=== PATIENT | female | born 1990 | race Two or more races ===

== ENCOUNTER 2019-11-04 20:38 | Inpatient (IN) | payer BC ==
[~2019-11-04] VITALS: Ht 152.4 cm; Wt 89.5 kg
[2019-11-04] MEDS ORDERED: SODIUM CHLORIDE 0.45% 1,000 ML IV PRN (20:39)
[2019-11-04] MEDS ORDERED: MAGNESIUM SULF. PMX 20GM/500ML 500 ML IV SCH (20:39)
[2019-11-04] MEDS ORDERED: MAGNESIUM SULFATE PMX 2GM/50ML 50 ML IVPB ONE (21:00)
[2019-11-04] MEDS ORDERED: CALCIUM GLUCONATE 4.6 MEQ/10 ML IV PRN (21:00)
[2019-11-04] MEDS ORDERED: PLEASE ENTER HEIGHT AND WEIGHT MC SCH (21:30)
[2019-11-04 21:53] LABS: BASOPHILS # (AUTO) 0.02 x10^3/uL (0-0.1); BASOPHILS % (AUTO) 0 % (0-1); EOSINOPHILS # (AUTO) 0.17 x10^3/uL (0-0.4); EOSINOPHILS % (AUTO) 2 % (1-7); LYMPHOCYTES # (AUTO) 1.49 x10^3/uL (1-3.4); LYMPHOCYTES % (AUTO) 14 % (22-44); MD NO; MEAN CORPUSCULAR HEMOGLOBIN 29.3 pg (27.0-34.8); MEAN CORPUSCULAR VOLUME 88.8 fL (80-100); MEAN PLATELET VOLUME 8.5 fL (7.4-10.4); MONOCYTES % (AUTO) 1 % (2-9); NEUTROPHILS # (AUTO) 8.57 x10^3/uL (1.8-6.8); NEUTROPHILS % (AUTO) 83 % (42-75); PLATELET COUNT 262 x10^3/uL (130-400); RED BLOOD COUNT 4.47 x10^6/uL (3.82-5.3); RED CELL DISTRIBUTION WIDTH 14.1 % (9.6-15.2)
[2019-11-04 22:02] LABS: ALANINE AMINOTRANSFERASE 16 U/L (12-78); ALBUMIN 2.7 g/dL (3.4-5.0); ANION GAP 10 mmol/L (5-15); CALCIUM 8.3 mg/dL (8.5-10.1); CHLORIDE 108 mmol/L (98-107); CREATININE 0.62 mg/dL (0.55-1.02)
[2019-11-04 22:04] LABS: ALKALINE PHOSPHATASE 136 U/L (45-117); BILIRUBIN,TOTAL 0.2 mg/dL (0.2-1.0); TOTAL PROTEIN 7.4 g/dL (6.4-8.2)
[2019-11-04 23:22] LABS: MICROSCOPIC NOT IND
[2019-11-04] MEDS: PENICILLIN GK 2,500,000 UNITS in DEXTROSE 5% 100 ML IV SCH (23:22)
[2019-11-04 23:27] LABS: CULTURE INDICATED? NO
[2019-11-05] MEDS ORDERED: INSULIN LISPRO 100 UNITS/ML, PEN SQ-INSULIN ONE (02:30)
[2019-11-05] MEDS ORDERED: MAGNESIUM SULF. PMX 20GM/500ML 500 ML IV ONE ×3 (02:48→18:11)
[2019-11-05] MEDS: PENICILLIN GK 2,500,000 UNITS in DEXTROSE 5% 100 ML IV SCH ×6 (03:32→23:06)
[2019-11-05] MEDS: LACTATED RINGERS 1,000 ML IV PRN ×2 (04:31→19:41)
[2019-11-05 07:15] VITALS: BP 120/80
[2019-11-05] MEDS: MAGNESIUM SULF. PMX 20GM/500ML 500 ML IV SCH ×2 (10:09→18:41)
[2019-11-05] MEDS ORDERED: BETAMETHASONE 6 MG/ML, 5ML IM ONE ×2 (16:44→17:00)
[2019-11-05 19:26] VITALS: BP 135/83
[2019-11-05] MEDS ORDERED: DOCUSATE 100 MG CAPSULE ONE (20:23)
[2019-11-06] MEDS: PENICILLIN GK 2,500,000 UNITS in DEXTROSE 5% 100 ML IV SCH ×6 (03:05→23:47)
[2019-11-06] MEDS ORDERED: MAGNESIUM SULF. PMX 20GM/500ML 500 ML IV ONE ×3 (05:53→17:42)
[2019-11-06] MEDS: MAGNESIUM SULF. PMX 20GM/500ML 500 ML IV SCH ×2 (05:57→15:24)
[2019-11-06] MEDS: LACTATED RINGERS 1,000 ML IV PRN (10:59)
[2019-11-07] MEDS: PENICILLIN GK 2,500,000 UNITS in DEXTROSE 5% 100 ML IVPB SCH ×3 (04:29→12:34)
[2019-11-07 04:43] LABS: MICROSCOPIC INDICATED
[2019-11-07 04:44] LABS: CULTURE INDICATED? YES
[2019-11-07] MEDS ORDERED: PRENATAL VIT/IRON/FA 1 EACH TABLET ONE (08:27)
[2019-11-07] MEDS ORDERED: DOCUSATE 100 MG CAPSULE ONE (08:28)
[2019-11-07] MEDS ORDERED: PRENATAL VIT/IRON/FA 1 EACH TABLET PO SCH (09:00)
[2019-11-07] MEDS: DOCUSATE 100 MG CAPSULE PO SCH ×2 (09:00→21:00)
[2019-11-07 11:32] VITALS: BP 127/72
[2019-11-07 19:56] VITALS: BP 114/69
[2019-11-08] MEDS ORDERED: DOCUSATE 100 MG CAPSULE ONE (08:28)
[2019-11-08] MEDS: DOCUSATE 100 MG CAPSULE PO SCH (08:48)
[2019-11-08] MEDS ORDERED: PRENATAL VIT/IRON/FA 1 EACH TABLET HOMEMEDPO SCH (09:00)
[2019-11-08] MEDS ORDERED: SODIUM CHLORIDE FLUSH 3ML SYRINGE IVF SCH (09:00)
[2019-11-08 10:24] VITALS: BP 133/82
[2019-11-09] MEDS: DOCUSATE 100 MG CAPSULE PO SCH ×2 (09:00→11:02)
[2019-11-09] MEDS: PRENATAL VIT/IRON/FA 1 EACH TABLET HOMEMEDPO SCH ×2 (09:00→11:01)
[2019-11-09] MEDS: AMPICILLIN 500MG CAPSULE PO SCH ×3 (11:04→23:12)
[2019-11-10] MEDS ORDERED: CALCIUM CARBONATE 500 MG TAB.CHEW ONE ×2 (04:51→11:30)
[2019-11-10] MEDS: CALCIUM CARBONATE 500 MG TAB.CHEW PO PRN ×2 (04:52→11:31)
[2019-11-10] MEDS: AMPICILLIN 500MG CAPSULE PO SCH ×5 (05:25→23:12)
[2019-11-10 08:30] VITALS: BP 131/87
[2019-11-10] MEDS ORDERED: AMPICILLIN 500MG CAPSULE ONE ×3 (10:58→20:45)
[2019-11-10] MEDS ORDERED: DOCUSATE 100 MG CAPSULE ONE (20:45)
[2019-11-10] MEDS: DOCUSATE 100 MG CAPSULE PO SCH (20:48)
[2019-11-10 20:54] VITALS: BP 125/67
[2019-11-11] MEDS ORDERED: AMPICILLIN 500MG CAPSULE ONE ×2 (04:34→23:21)
[2019-11-11] MEDS: AMPICILLIN 500MG CAPSULE PO SCH ×2 (04:39→11:00)
[2019-11-11] MEDS ORDERED: AMOXICILLIN 250 MG CAPSULE ONE ×3 (08:11→22:57)
[2019-11-11] MEDS: DOCUSATE 100 MG CAPSULE PO SCH ×4 (08:13→21:00)
[2019-11-11] MEDS: PRENATAL VIT/IRON/FA 1 EACH TABLET HOMEMEDPO SCH ×2 (08:13→09:00)
[2019-11-11 09:30] VITALS: BP 136/82
[2019-11-11] MEDS: AMPICILLIN 250MG CAPSULE PO SCH ×2 (10:58→16:59)
[2019-11-11] MEDS ORDERED: DOCUSATE 100 MG CAPSULE ONE (20:57)
[2019-11-11] MEDS ORDERED: AMPICILLIN 500MG CAPSULE PO ONE (23:30)
[2019-11-12] MEDS ORDERED: AMPICILLIN 500MG CAPSULE ONE ×2 (05:08→07:13)
[2019-11-12] MEDS: AMPICILLIN 500MG CAPSULE PO SCH ×2 (05:10→11:00)
[2019-11-12] MEDS ORDERED: DOCUSATE 100 MG CAPSULE ONE (07:12)
[2019-11-12] MEDS ORDERED: AMOXICILLIN 250 MG CAPSULE ONE ×2 (08:10→15:08)
[2019-11-12] MEDS: DOCUSATE 100 MG CAPSULE PO SCH (08:16)
[2019-11-12 08:31] VITALS: BP 131/76
[2019-11-12] MEDS ORDERED: PREN1TAB60 PO (14:55)
== END 2019-11-12 15:21 | disposition home or self-care (01) | DRG 831 ==
LOC: LDIP 20:38
PROVIDERS: ADMIT Obstetrics & Gynecology Maternal & Fetal Medicine; ATTEND Obstetrics & Gynecology Maternal & Fetal Medicine
DX: O23.43 Unspecified infection of urinary tract in pregnancy, third trimester (principal); O60.03 Preterm labor without delivery, third trimester; O40.3XX0 Polyhydramnios, third trimester, not applicable or unspecified; O24.419 Gestational diabetes mellitus in pregnancy, unspecified control; Z3A.35 35 weeks gestation of pregnancy
CPT/HCPCS: 36415; 80053; 81001; 81003; 82962; 83735; 85025; 86592; 86850; 86900; 87077; 87086; 87186; G0378; J0702; J2540; J1815; J3475; J7120